=== PATIENT | female | born 1970 | race Caucasian/White ===

== ENCOUNTER → 2017-07-26 | Outpatient (CLI) | payer BC | END | disposition home or self-care (01) | LOC: KCIC MAMMO 14:03 | DX: Z12.31 Encounter for screening mammogram for malignant neoplasm of breast (principal) | CPT/HCPCS: 77067 ==

== ENCOUNTER → 2020-08-20 | Outpatient (CLI) | payer BC ==
--- NOTE | 2020-08-20 15:51 | KCIC ---
Bilateral digital screening mammograms: Reason for examination: Routine screening. Comparison is made to previous studies dated 07/26/2017, 04/08/2015 and 11/01/2011. Bilateral mammograms in CC and oblique projections were obtained with 2-D imaging. Interpretation was made with the benefit of CAD. The skin and nipples show no abnormalities. No abnormal axillary lymph nodes are seen. The breast par enchyma shows scattered fatty and fibroglandular density. (Breast density: Category B.) There appears to be new 6.7 x 5.5 mm nodule in the 2:30 B position of the left breast. Further evaluation with ult rasound is recommended. There are no other new dominant masses, suspicious calcifications or architec tural distortion. Impression: Small 6.7 mm nodule at the 2:30 B position of the left breast 5 cm from the nipple. Recommend further evaluation with ultrasound. BI-RADS Category 0: Incomplete. Needs additional imaging evaluation. "Our facility is accredited by the [employer] Mammography [employer]." This patient's information has been entered into a reminder system for the patient to be notified wit h the results of her examination and a target date for the next mammogram. Electronically signed by: Altagracia Jauregui MD (08/20/2020 3:49 PM) [id number]
== END ==
LOC: KCIC MAMMO 14:19
PROVIDERS: ATTEND Internal Medicine
DX: Z12.31 Encounter for screening mammogram for malignant neoplasm of breast (principal); N64.89 Other specified disorders of breast
CPT/HCPCS: 77067

== ENCOUNTER → 2020-09-09 | Outpatient (CLI) | payer BC ==
--- NOTE | 2020-09-09 14:47 | KCIC ---
Left breast ultrasound: Reason for examination: Nodular density on screening mammogram. Comparison is made to mammographic exam dated 08/20/2020. Ultrasound examination of the left breast and axilla was performed. At the 2:30 position 5 cm from the nipple, there is a 8.4 x 3.4 mm hypoechoic circumscribed lesion in parallel orientation which shows no abnormal vascularity. This likely represents a fibroadenoma. No other cystic or solid lesions are seen and no abnormal appearing lymph nodes are seen in the left axi lla. IMPRESSION: 8.4 mm nodule at the 2:30 position corresponds to the area of mammographic concern and likely represe nts a small fibroadenoma. Recommend 6 month follow-up with ultrasound. BI-RADS Category 3: Probably Benign. "Our facility is accredited by the [employer] Mammography [employer]." This patient's information has been entered into a reminder system for the patient to be notified wit h the results of her examination and a target date for the next mammogram. Electronically signed by: Altagracia Jauregui MD (09/09/2020 2:44 PM) [id number]
== END ==
LOC: KCIC US 14:07
PROVIDERS: ATTEND Internal Medicine
DX: N63.21 Unspecified lump in the left breast, upper outer quadrant (principal); R92.8 Other abnormal and inconclusive findings on diagnostic imaging of breast
CPT/HCPCS: 76641